=== PATIENT | female | born 1995 | race Caucasian/White ===

== ENCOUNTER 2018-04-23 03:44 | Emergency (ER) | payer MEDICAID ==
[~2018-04-23] VITALS: Ht 157.5 cm; Wt 56.0 kg
[2018-04-23] MEDS ORDERED: ONDANSETRON HCL 4MG/2ML INJ IV STA (04:18)
[2018-04-23] MEDS ORDERED: MAGNESIUM/ALUMINUM HYDROXIDE/SIMETHICONE 30ML UDC PO STA (04:18)
[2018-04-23] MEDS ORDERED: SODIUM CHLORIDE 0.9% 1,000 ML IV ONE (04:18)
[2018-04-23] MEDS ORDERED: FAMOTIDINE 20MG/2ML VIAL IV STA (04:18)
[2018-04-23 04:46] LABS: BASOPHILS % 0.7 % (0.0-2.0); EOSINOPHILS % 1.7 % (0.0-5.0); HEMATOCRIT. 35.8 % (36.0-48.0); LYMPHOCYTES % 29.2 % (20.0-50.0); MEAN CORPUSCULAR HEMOGLOBIN 29.4 pg (28.0-32.0); MEAN CORPUSCULAR VOLUME 87.5 fL (81.0-99.0); MEAN PLATELET VOLUME 8.1 fl (7.4-10.4); NEUTROPHILS % 58.4 % (40.0-76.0); PLATELET 313 x1000/uL (130-400); RED BLOOD CELL COUNT 4.09 mill/uL (4.2-5.4); RED CELL DISTRIBUTION WIDTH 12.9 % (11.6-14.6)
[2018-04-23 04:58] LABS: CHLORIDE 104 mEq/L (98-107)
[2018-04-23 05:05] LABS: PROTHROMBIN TIME 10.3 sec (9.1-11.1)
[2018-04-23 07:12] LABS: CLARITY URINE CLEAR (CLEAR); COLOR URINE YELLOW (YELLOW); KETONES URINE NEGATIVE (NEGATIVE); LEUKOCYTE ESTERASE URINE NEGATIVE (NEGATIVE); NITRITE URINE NEGATIVE (NEGATIVE); OCCULT BLOOD URINE NEGATIVE (NEGATIVE); PROTEIN URINE NEGATIVE (NEGATIVE); SPECIFIC GRAVITY URINE 1.013 (1.005-1.030); UROBILINOGEN URINE 0.2 E.U./dL (0.2-1.0)
[2018-04-23 07:45] VITALS: BP 107/56
== END 2018-04-23 07:49 | disposition home or self-care (01) ==
LOC: ER 03:44
DX: R10.0 Acute abdomen (principal)
CPT/HCPCS: 36415; 74176; 80053; 81003; 81025; 83690; 85025; 85610; 96361; 96374; 96375; 99285; J2405; J3490; J7030